=== PATIENT | male | born 1955 | race Caucasian/White ===

== ENCOUNTER → 2017-02-27 | Day surgery (SDC) | payer OTHER ==
[~2017-02-27] MED LIST: ACETAMINOPHEN 1000 MG/100 ML 100 ML IV ONE; BUPIVACAINE/EPINEPHRINE 0.25% 50 ML VIAL ONE; KETOROLAC TROMETHAMINE 30 MG/ML (IVP) VIAL IV PUSH ONE; LACTATED RINGER'S 1000 ML INJ 1,000 ML ONE; MIDAZOLAM HCL 2 MG/2 ML VIAL ONE; ONDANSETRON HCL 4 MG/2 ML VIAL IV PUSH ONE; PROPOFOL 200 MG/20 ML AMP IV ONE; Z.0.NO CURRENT MEDS; ceFAZolin 2 GM PREMIX 50 ML ONE
--- NOTE | 2017-03-24 13:26 | PD.OP ---
cc: Fei Ruano MD Operative Report Date of Surgery: Feb 27, 2017 Preoperative Diagnosis: (1) Soft tissue mass Postoperative Diagnosis: (1) Soft tissue mass Procedure: Excision large left buttock mass and right buttock mass x 2 Anesthesia: Gen Surgeon: Fei Ruano Quality Assurance Analyst(s): Staff Operation and Findings: EBL: 5cc Procedure in detail: The patient was taken to the operating room and placed in the supine position. General endotracheal anesthesia was induced. The patient was then placed prone taking care to pad him at the chest and hips and feet and arms. The buttock and upper thighs was prepped and draped in usual sterile fashion and a surgical timeout was performed to verify correct patient and procedure site. Two sub- cm exophytic soft masses on stalks were excised from right buttock and border of right buttock and thigh after infiltration with local anesthetic. Due to this being on a stalk a minimal incision was required and one 4-0 monocryl suture placed. Each of these specimens was sent to pathology for permanent. Attention was then turned to the large exophytic left buttock mass approximately 5 cm in diameter. After infiltration of local anesthetic an elliptical incision was made and this was carried out into the subcutaneous tissue with electrocautery to fully excise the mass. There was no invasive appearing component. It did not invade into the muscle layer. The skin lesion was sent for permanent specimen. This incision was closed with deep dermal 3-0 Vicryl and subcuticular 4-0 Monocryl and Dermabond. The patient tolerated the procedure well was extubated and taken to PACU in stable condition. Fei Ruano MD Mar 24, 2017 13:26
== END | disposition home or self-care (01) ==
LOC: ESDC 07:39
PROVIDERS: ATTEND Surgery
DX: R22.2 Localized swelling, mass and lump, trunk (principal); R22.41 Localized swelling, mass and lump, right lower limb
CPT/HCPCS: 00300; 00400; 11401; 11406; 88304; J0131; J0690; J1885; J2250; J2405; J3010; J7120; 88305